=== PATIENT | female | born 1970 | race Caucasian/White ===

== ENCOUNTER 2017-10-02 11:35 | Emergency (ER) | payer OTHER ==
[~2017-10-02] VITALS: Ht 157.5 cm; Wt 152.9 kg
[~2017-10-02 11:35] MED LIST: ASPIR-LOW81 MG PO; ASPIRIN325 MG PO; ASPIRIN81 M2 PO; ATIVAN0.5 MG PO; CIPRO HC OTIC S10 ML BOTH EARS; DOXYCYCLINE HY100 MG PO; GABAPENTIN300 MG PO; GLUCOPHAGE1000 MG PO; HUMALOG100 UNIT/2 SC; LANTUS100 UNIT/1 SQ; LASIX40 MG PO; LEVAQUIN750 MG PO; LEVOTHYROXINE75 MCG; LEVOXYL25 MCG; LIPITOR10 MG; LIPITOR10 MG PO; LISINOPRIL5 MG; LOPRESSOR25 MG PO; LOVENOX150 MG/1 M SC; MORPHINE CON20 MG/M1 PO; NEURONTIN100 MG; NORCO 5/3251 TABLET PO; PRAVASTATIN SOD80 MG PO; PROMETHAZINE12.5 M1 PO; QUINAPRIL-HCTZ1 EAC2 PO; SYNTHROID88 MCG PO; WARFARIN SODIU7.5 MG PO
[2017-10-02 12:14] LABS: HEMATOCRIT 30.1 % (36.0-46.0); MCH 28.1 PG (29.0-34.0); MCHC 32.2 G/DL (30.0-36.0); MCV 87.2 FL (83-99); MEAN PLAT.VOLUME 10.8 uM^3 (9.5-12.4); PLATELET COUNT 342 K/uL (156-360); RBC DIS.WIDTH-CV 15.2 % (11.8-14.6); RBC DIS.WIDTH-SD 48.7 % (39-53); RED BLOOD COUNT 3.45 M/uL (3.80-5.20); WHITE BLOOD COUNT 9.4 K/uL (4.1-10.2)
[2017-10-02 12:22] LABS: CHLORIDE 106 mEq/L (99-109); POTASSIUM 4.9 mEq/L (3.7-5.4); SODIUM 141 mEq/L (136-147)
[2017-10-02 12:24] LABS: GLUCOSE 157 mg/dL (70-99)
[2017-10-02 12:25] LABS: ANION GAP 9 MEQ/L (2-14)
[2017-10-02 12:26] LABS: TOTAL BILIRUBIN 0.3 mg/dL (0.0-1.0)
[2017-10-02 12:27] LABS: ALKALINE PHOSPHATASE 139 IU/L (3-129)
[2017-10-02 12:28] LABS: GFR ESTIMATE (CALCULATED) 56 mL/min/
[2017-10-02 12:29] LABS: UREA NITROGEN (BUN) 26 mg/dL (9-23)
[2017-10-02 12:36] LABS: QUANTITATIVE HCG < 4.0 MIU/ML
[2017-10-02 12:37] LABS: ADD MIUA? YES; BILIRUBIN NEGATIVE; BLOOD LARGE; COLOR STRAW ((YELLOW)); GLUCOSE (STRIP) NEGATIVE; KETONES NEGATIVE; LEUKOCYTES NEGATIVE; NITRITE NEGATIVE; PROTEIN (STRIP) 30; SPECIFIC GRAVITY 1.013 (1.000-1.030); UROBILINOGEN 0.2 MG/DL (0.2-1.0)
[2017-10-02 12:48] LABS: BACTERIA RARE /HPF; EPITHELIAL CELLS RARE /HPF; MUCUS TRACE /LPF; UCUL ADDED? NO; WHITE BLOOD CELLS 0-5 /HPF (0-5)
[2017-10-02 14:12] LABS: PROTHROMBIN TIME 51.1 SEC (10.2-12.9)
[2017-10-02 14:27] LABS: INTER. NORMALIZED RATIO 4.5
[2017-10-02] MEDS ORDERED: BACTRIM,SEPT1 TABLET PO (15:14)
[2017-10-02] MEDS ORDERED: NORCO 5/3251 TABLET PO (15:14)
[2017-10-02 15:38] VITALS: BP 149/76
== END 2017-10-02 15:40 | disposition home or self-care (01) ==
LOC: EME 11:35
PROVIDERS: Emergency Medicine
DX: R10.30 Lower abdominal pain, unspecified (principal); N88.8 Other specified noninflammatory disorders of cervix uteri; M54.5 Low back pain; R11.0 Nausea; R19.7 Diarrhea, unspecified; I10 Essential (primary) hypertension; E03.9 Hypothyroidism, unspecified; E11.9 Type 2 diabetes mellitus without complications; Z79.4 Long term (current) use of insulin; Z86.718 Personal history of other venous thrombosis and embolism; Z95.1 Presence of aortocoronary bypass graft; Z86.73 Personal history of transient ischemic attack (TIA), and cerebral infarction without residual deficits; Z79.01 Long term (current) use of anticoagulants; Z87.891 Personal history of nicotine dependence
CPT/HCPCS: 74176; 80053; 81003; 84702; 85027; 85610; 99281; 99284

== ENCOUNTER 2017-10-10 10:14 | Observation (INO) | payer OTHER ==
[2017-10-10] VITALS (17 sets, daily range): BP systolic 107–159; BP diastolic 51–90
[~2017-10-10] VITALS: Ht 157.5 cm; Wt 153.6 kg
[~2017-10-10 10:14] MED LIST changes: +BACTRIM,SEPT1 TABLET PO; +LANTUS 3 M100 UNITS1 SC; -LIPITOR10 MG PO; +LIPITOR40 MG PO; +LOSARTAN-HCTZ1 EAC2 PO; -QUINAPRIL-HCTZ1 EAC2 PO
[2017-10-10 11:42] LABS: PTT 51.1 SEC (25-37)
[2017-10-10 11:45] LABS: PROTHROMBIN TIME 54.2 SEC (10.2-12.9)
[2017-10-10 11:47] LABS: HEMATOCRIT 20.4 % (36.0-46.0); MCH 29.1 PG (29.0-34.0); MCHC 31.9 G/DL (30.0-36.0); MCV 91.5 FL (83-99); MEAN PLAT.VOLUME 10.9 uM^3 (9.5-12.4); PLATELET COUNT 407 K/uL (156-360); RBC DIS.WIDTH-CV 15.9 % (11.8-14.6); RBC DIS.WIDTH-SD 51.5 % (39-53); RED BLOOD COUNT 2.23 M/uL (3.80-5.20); WHITE BLOOD COUNT 8.4 K/uL (4.1-10.2)
[2017-10-10 11:50] LABS: INTER. NORMALIZED RATIO 4.8
[2017-10-10 12:11] LABS: ANION GAP 8 MEQ/L (2-14); CHLORIDE 106 MEQ/L (99-109); GFR ESTIMATE (CALCULATED) 51 mL/min/; GLUCOSE 275 mg/dL (70-99); POTASSIUM 5.6 MEQ/L (3.7-5.4); SAMPLE HEMOLYSIS CHECK 1; SAMPLE ICTERIC CHECK 0; SAMPLE LIPEMIA CHECK 0; SODIUM 137 MEQ/L (136-147); UREA NITROGEN (BUN) 28 mg/dL (9-23)
[2017-10-10] MEDS ORDERED: WARFARIN SODIU7.5 MG PO ×2 (13:35→13:36)
[2017-10-10] MEDS ORDERED: NUCYNTA75 MG PO (13:38)
[2017-10-10] MEDS ORDERED: GABAPENTIN300 MG PO (13:39)
[2017-10-10 17:27] LABS: POINT-OF-CARE METER ID UU14162508
[2017-10-10 21:53] LABS: POINT-OF-CARE METER ID UU14208750
[2017-10-11] VITALS (14 sets, daily range): BP systolic 106–156; BP diastolic 53–75
[2017-10-11 06:44] LABS: POINT-OF-CARE METER ID UU14208750
[2017-10-11 07:50] LABS: BASOPHIL COUNT 0.1 K/uL (0-0.1); EOSINOPHIL (%) 6.4 % (0-5); EOSINOPHIL COUNT 0.5 K/uL (0-0.3); HEMATOCRIT 27.9 % (36.0-46.0); IMMATURE GRANULOCYTE (%) 1.1 % (0.0-0.7); IMMATURE GRANULOCYTE COUNT 0.1 K/uL; INSTRUMENT ABS NEUTROPHIL CT 4.3 K/uL; MCH 29.7 PG (29.0-34.0); MEAN PLAT.VOLUME 10.3 uM^3 (9.5-12.4); MONOCYTE (%) 5.2 % (3-12); MONOCYTE COUNT 0.4 K/uL (0-0.8); NEUTROPHIL (%) 58.7 % (45-76); NEUTROPHIL COUNT 4.3 K/uL (1.8-6.4); NRBC (%) 0.4 /100 WBC (0-0); PLATELET COUNT 366 K/uL (156-360); RBC DIS.WIDTH-CV 15.5 % (11.8-14.6); RBC DIS.WIDTH-SD 49.3 % (39-53); WHITE BLOOD COUNT 7.3 K/uL (4.1-10.2)
[2017-10-11 08:00] LABS: PTT 31.5 SEC (25-37)
[2017-10-11 08:04] LABS: INTER. NORMALIZED RATIO 1.3; PROTHROMBIN TIME 14.9 SEC (10.2-12.9)
[2017-10-11 08:09] LABS: ANION GAP 8 MEQ/L (2-14); CHLORIDE 107 MEQ/L (99-109); GFR ESTIMATE (CALCULATED) 56 mL/min/; GLUCOSE 75 mg/dL (70-99); POTASSIUM 4.4 MEQ/L (3.7-5.4); SAMPLE HEMOLYSIS CHECK 0; SAMPLE ICTERIC CHECK 0; SAMPLE LIPEMIA CHECK 0; SODIUM 141 MEQ/L (136-147); UREA NITROGEN (BUN) 23 mg/dL (9-23)
[2017-10-11 12:12] LABS: POINT-OF-CARE METER ID UU13113675
[2017-10-11 16:35] LABS: POINT-OF-CARE METER ID UU14162508
[2017-10-11 21:31] LABS: POINT-OF-CARE METER ID UU14314084
[2017-10-12 03:00] VITALS: BP 117/64
[2017-10-12 06:46] LABS: POINT-OF-CARE METER ID UU14208750
[2017-10-12 07:25] VITALS: BP 113/74
[2017-10-12 08:23] LABS: BASOPHIL COUNT 0.1 K/uL (0-0.1); EOSINOPHIL (%) 5.6 % (0-5); EOSINOPHIL COUNT 0.4 K/uL (0-0.3); HEMATOCRIT 30.4 % (36.0-46.0); IMMATURE GRANULOCYTE (%) 0.6 % (0.0-0.7); INSTRUMENT ABS NEUTROPHIL CT 4.4 K/uL; LYMPHOCYTE COUNT 1.6 K/uL (1.0-2.8); MCH 28.8 PG (29.0-34.0); MCHC 31.9 G/DL (30.0-36.0); MCV 90.2 FL (83-99); MEAN PLAT.VOLUME 10.4 uM^3 (9.5-12.4); MONOCYTE (%) 5.2 % (3-12); MONOCYTE COUNT 0.4 K/uL (0-0.8); NEUTROPHIL (%) 64.9 % (45-76); NEUTROPHIL COUNT 4.4 K/uL (1.8-6.4); PLATELET COUNT 372 K/uL (156-360); RBC DIS.WIDTH-CV 16.3 % (11.8-14.6); RBC DIS.WIDTH-SD 53.1 % (39-53); RED BLOOD COUNT 3.37 M/uL (3.80-5.20); WHITE BLOOD COUNT 6.8 K/uL (4.1-10.2)
[2017-10-12 08:32] LABS: INTER. NORMALIZED RATIO 1.3; PROTHROMBIN TIME 14.6 SEC (10.2-12.9)
[2017-10-12] MEDS ORDERED: NORCO 5/3251 TABLET PO (09:58)
[2017-10-12] MEDS ORDERED: LOVENOX150 MG/1 M SC (09:58)
[2017-10-12] MEDS ORDERED: COUMADIN5 MG PO (09:58)
[2017-10-12 11:15] VITALS: BP 129/67
[2017-10-12 11:48] LABS: POINT-OF-CARE METER ID UU14162508
== END 2017-10-12 13:16 | disposition home or self-care (01) ==
LOC: EME 10:14 → 2EAST 13:45 → EDOF 13:45 → ENRESERV 13:49 → 2EAST 15:59
PROVIDERS: Emergency Medicine; Obstetrics & Gynecology
DX: D50.0 Iron deficiency anemia secondary to blood loss (chronic) (principal); N92.0 Excessive and frequent menstruation with regular cycle; R79.1 Abnormal coagulation profile; T45.515A Adverse effect of anticoagulants, initial encounter; Z79.01 Long term (current) use of anticoagulants; Z86.718 Personal history of other venous thrombosis and embolism; E66.01 Morbid (severe) obesity due to excess calories; E11.9 Type 2 diabetes mellitus without complications; I25.10 Atherosclerotic heart disease of native coronary artery without angina pectoris; E78.00 Pure hypercholesterolemia, unspecified; I10 Essential (primary) hypertension; Z95.1 Presence of aortocoronary bypass graft; G89.29 Other chronic pain; M54.5 Low back pain; E03.9 Hypothyroidism, unspecified; N39.0 Urinary tract infection, site not specified; Z79.4 Long term (current) use of insulin; Z87.891 Personal history of nicotine dependence; Z83.3 Family history of diabetes mellitus
CPT/HCPCS: 80048; 80048 91; 82948; 83036; 85025; 85025 91; 85027; 85610; 85730; 86850; 86900; 86901; 86920; 88305; 99281; 99285; G0378; J0690; J1650; J1815; J2405; J3010; J3430; J7040; J7050; J7120; P9016; P9017; P9040; Q0177

== ENCOUNTER 2018-02-01 16:36 | Inpatient (IN) | payer OTHER ==
[~2018-02-01] VITALS: Ht 157.5 cm; Wt 158.8 kg
[2018-02-01] VITALS (8 sets, daily range): BP systolic 110–135; BP diastolic 57–94
[~2018-02-01 16:36] MED LIST changes: +COUMADIN5 MG PO; +NUCYNTA75 MG PO
[2018-02-01 17:17] LABS: HEMATOCRIT 18.8 % (36.0-46.0); MCH 28.2 PG (29.0-34.0); MCHC 31.9 G/DL (30.0-36.0); MCV 88.3 FL (83-99); PLATELET COUNT 373 K/uL (156-360); RBC DIS.WIDTH-CV 15.4 % (11.8-14.6); RBC DIS.WIDTH-SD 49.1 % (39-53); RED BLOOD COUNT 2.13 M/uL (3.80-5.20); WHITE BLOOD COUNT 8.9 K/uL (4.1-10.2)
[2018-02-01 17:20] LABS: INTER. NORMALIZED RATIO 4.5
[2018-02-01 17:33] LABS: CHLORIDE 101 mEq/L (99-109); POTASSIUM 5.8 mEq/L (3.7-5.4); SODIUM 134 mEq/L (136-147)
[2018-02-01 17:39] LABS: CREATININE 1.4 mg/dL (0.6-1.3); GFR ESTIMATE (CALCULATED) 43 mL/min/
[2018-02-01 17:40] LABS: UREA NITROGEN (BUN) 28 mg/dL (9-23)
[2018-02-01 17:42] LABS: GLUCOSE 419 mg/dL (70-99)
[2018-02-01] MEDS ORDERED: MEDROXYPROGESTE10 MG PO (18:30)
[2018-02-01] MEDS ORDERED: ATORVASTATIN CA40 MG PO (18:31)
[2018-02-01] MEDS ORDERED: LEVEMIR FL100 UNIT/1 SC (18:32)
[2018-02-01] MEDS ORDERED: NOVOLOG PE100 UNITS/ SC (18:34)
[2018-02-01] MEDS ORDERED: LOPRESSOR50 MG PO (18:34)
[2018-02-01] MEDS ORDERED: COUMADIN7.5 MG PO (18:36)
[2018-02-01] MEDS ORDERED: LO-DOSE ASPIRIN81 M2 PO (18:38)
[2018-02-01 21:45] LABS: APPEARANCE CLOUDY ((CLEAR)); BILIRUBIN NEGATIVE; BLOOD MODERATE; GLUCOSE (STRIP) >=500; KETONES NEGATIVE; LEUKOCYTES NEGATIVE; NITRITE NEGATIVE; PROTEIN (STRIP) 100; SPECIFIC GRAVITY 1.021 (1.000-1.030); UROBILINOGEN 0.2 MG/DL (0.2-1.0)
[2018-02-01 21:55] LABS: COLOR RED ((YELLOW))
[2018-02-01 21:56] LABS: BACTERIA NONE SEEN /HPF; EPITHELIAL CELLS NONE SEEN /HPF; MUCUS NONE SEEN /LPF; RED BLOOD CELLS TNTC /HPF (0-5); UCUL ADDED? YES; WHITE BLOOD CELLS RARE /HPF (0-5)
[2018-02-02] VITALS (19 sets, daily range): BP systolic 111–158; BP diastolic 60–92
[2018-02-02 00:46] LABS: TROP-I INTERPRETATION NEGATIVE; TROPONIN-I < 0.01 ng/mL (0.0-0.30)
[2018-02-02 03:03] LABS: HEMATOCRIT 19.8 % (36.0-46.0); HEMOGLOBIN 6.5 G/DL (11.9-15.5); MCV 85.7 FL (83-99)
[2018-02-02 06:09] LABS: HEMATOCRIT 21.1 % (36.0-46.0); MCH 27.9 PG (29.0-34.0); MCHC 32.2 G/DL (30.0-36.0); MCV 86.5 FL (83-99); PLATELET COUNT 352 K/uL (156-360); RBC DIS.WIDTH-SD 47.2 % (39-53); RED BLOOD COUNT 2.44 M/uL (3.80-5.20)
[2018-02-02 06:10] LABS: HEMOGLOBIN 6.8 G/DL (11.9-15.5)
[2018-02-02 06:12] LABS: TROP-I INTERPRETATION NEGATIVE; TROPONIN-I 0.01 ng/mL (0.0-0.30)
[2018-02-02 06:32] LABS: CHLORIDE 103 MEQ/L (99-109); CREATININE 1.2 MG/DL (0.6-1.3); GFR ESTIMATE (CALCULATED) 51 mL/min/; GLUCOSE 284 mg/dL (70-99); SODIUM 138 MEQ/L (136-147); UREA NITROGEN (BUN) 24 mg/dL (9-23)
[2018-02-02 06:44] LABS: POTASSIUM 4.6 MEQ/L (3.7-5.4)
[2018-02-02 10:30] LABS: INTER. NORMALIZED RATIO 1.5
[2018-02-02 11:23] LABS: IMM.RETIC FRACTION 38.5 % (3-19); RETIC HGB EQUIVALENT 26.9 (28-36); RETICULOCYTE COUNT 4.5 % (0.5-1.8)
[2018-02-02 11:32] LABS: ALBUMIN 3.2 G/DL (3.2-4.8); ALKALINE PHOSPHATASE 123 IU/L (3-129); ALT (GPT) 15 IU/L (3-49); AST (GOT) 10 IU/L (2-34); DIRECT BILIRUBIN 0.1 mg/dL (0.0-0.3); TOTAL BILIRUBIN 0.5 MG/DL (0.0-1.0); TOTAL PROTEIN 5.7 G/DL (6.4-8.3)
[2018-02-02 11:36] LABS: FERRITIN 11 NG/ML (10-291)
[2018-02-02 11:54] LABS: FOLIC ACID (FOLATE) 16.6 NG/ML (5.0-22.0)
[2018-02-02 15:58] LABS: HEMOGLOBIN 8.1 G/DL (11.9-15.5); MCV 87.4 FL (83-99)
[2018-02-02 21:47] LABS: HEMATOCRIT 26.3 % (36.0-46.0); HEMOGLOBIN 8.6 G/DL (11.9-15.5); MCV 88.3 FL (83-99)
[2018-02-03 06:18] LABS: BASOPHIL (%) 0.6 % (0-1); BASOPHIL COUNT 0.1 K/uL (0-0.1); EOSINOPHIL (%) 4.9 % (0-5); EOSINOPHIL COUNT 0.4 K/uL (0-0.3); HEMATOCRIT 25.3 % (36.0-46.0); HEMOGLOBIN 8.1 G/DL (11.9-15.5); IMMATURE GRANULOCYTE (%) 0.5 % (0.0-0.7); LYMPHOCYTE (%) 20.3 % (15-42); LYMPHOCYTE COUNT 1.7 K/uL (1.0-2.8); MCV 87.5 FL (83-99); MONOCYTE (%) 6.3 % (3-12); MONOCYTE COUNT 0.5 K/uL (0-0.8); NEUTROPHIL (%) 67.4 % (45-76); NEUTROPHIL COUNT 5.5 K/uL (1.8-6.4); PLATELET COUNT 321 K/uL (156-360); RBC DIS.WIDTH-SD 47.8 % (39-53); RED BLOOD COUNT 2.89 M/uL (3.80-5.20); WHITE BLOOD COUNT 8.1 K/uL (4.1-10.2)
[2018-02-03 06:46] LABS: ALBUMIN 3.1 G/DL (3.2-4.8); ALKALINE PHOSPHATASE 117 IU/L (3-129); ALT (GPT) 15 IU/L (3-49); AST (GOT) 11 IU/L (2-34); CHLORIDE 100 MEQ/L (99-109); CREATININE 1.1 MG/DL (0.6-1.3); GFR ESTIMATE (CALCULATED) 56 mL/min/; GLUCOSE 205 mg/dL (70-99); POTASSIUM 3.9 MEQ/L (3.7-5.4); SODIUM 139 MEQ/L (136-147); TOTAL BILIRUBIN 0.4 MG/DL (0.0-1.0); TOTAL PROTEIN 5.8 G/DL (6.4-8.3); UREA NITROGEN (BUN) 20 mg/dL (9-23)
[2018-02-03 10:06] VITALS: BP 132/67
[2018-02-03 11:52] LABS: INTER. NORMALIZED RATIO 1.2
[2018-02-03 11:54] LABS: HEMATOCRIT 24.5 % (36.0-46.0); HEMOGLOBIN 7.9 G/DL (11.9-15.5); MCV 89.4 FL (83-99)
[2018-02-03 16:58] VITALS: BP 135/73
[2018-02-04] VITALS (7 sets, daily range): BP systolic 117–135; BP diastolic 62–75
[2018-02-04 06:45] LABS: BASOPHIL (%) 0.5 % (0-1); EOSINOPHIL (%) 6.1 % (0-5); EOSINOPHIL COUNT 0.4 K/uL (0-0.3); HEMATOCRIT 23.8 % (36.0-46.0); HEMOGLOBIN 7.6 G/DL (11.9-15.5); IMMATURE GRANULOCYTE (%) 0.5 % (0.0-0.7); LYMPHOCYTE COUNT 1.4 K/uL (1.0-2.8); MCH 28.7 PG (29.0-34.0); MCHC 31.9 G/DL (30.0-36.0); MCV 89.8 FL (83-99); MONOCYTE (%) 6.6 % (3-12); MONOCYTE COUNT 0.4 K/uL (0-0.8); NEUTROPHIL (%) 63.3 % (45-76); NEUTROPHIL COUNT 3.7 K/uL (1.8-6.4); PLATELET COUNT 310 K/uL (156-360); RBC DIS.WIDTH-CV 15.2 % (11.8-14.6); RBC DIS.WIDTH-SD 48.8 % (39-53); RED BLOOD COUNT 2.65 M/uL (3.80-5.20); WHITE BLOOD COUNT 5.9 K/uL (4.1-10.2)
[2018-02-04 06:51] LABS: INTER. NORMALIZED RATIO 1.2
[2018-02-04 07:09] LABS: ALKALINE PHOSPHATASE 114 IU/L (3-129); ALT (GPT) 13 IU/L (3-49); AST (GOT) 10 IU/L (2-34); CHLORIDE 101 MEQ/L (99-109); CREATININE 1.1 MG/DL (0.6-1.3); GFR ESTIMATE (CALCULATED) 56 mL/min/; GLUCOSE 208 mg/dL (70-99); POTASSIUM 4.1 MEQ/L (3.7-5.4); SODIUM 138 MEQ/L (136-147); TOTAL BILIRUBIN 0.4 MG/DL (0.0-1.0); TOTAL PROTEIN 5.6 G/DL (6.4-8.3); UREA NITROGEN (BUN) 18 mg/dL (9-23)
[2018-02-04 17:53] LABS: HEMATOCRIT 29.4 % (36.0-46.0); HEMOGLOBIN 9.4 G/DL (11.9-15.5); MCV 90.5 FL (83-99)
[2018-02-05 06:02] LABS: HEMATOCRIT 27.4 % (36.0-46.0); HEMOGLOBIN 8.6 G/DL (11.9-15.5); MCV 90.4 FL (83-99)
[2018-02-05 06:05] LABS: INTER. NORMALIZED RATIO 1.2
[2018-02-05 08:19] VITALS: BP 163/71
[2018-02-05 15:05] LABS: HEMATOCRIT 27.7 % (36.0-46.0); HEMOGLOBIN 8.8 G/DL (11.9-15.5); MCV 91.4 FL (83-99)
[2018-02-05 15:50] VITALS: BP 139/70
[2018-02-05 23:35] VITALS: BP 139/63
[2018-02-06 07:22] LABS: HEMATOCRIT 27.5 % (36.0-46.0); HEMOGLOBIN 8.5 G/DL (11.9-15.5); MCV 90.5 FL (83-99)
[2018-02-06 07:28] LABS: INTER. NORMALIZED RATIO 1.3
[2018-02-06 07:29] VITALS: BP 125/59
[2018-02-06] MEDS ORDERED: MEDROXYPROGESTE10 MG PO (10:42)
== END 2018-02-06 12:48 | disposition home or self-care (01) | DRG 812 ==
LOC: EME 16:36 → 2EAST 18:53 → EDOF 18:53 → ENRESERV 18:55 → 2EAST 21:53
PROVIDERS: Hospitalist; Internal Medicine; Internal Medicine Hematology & Oncology
PROC: 30233N1 Transfusion of Nonautologous Red Blood Cells into Peripheral Vein, Percutaneous Approach (ICD-10-PCS; principal; 2018-02-01)
PROC: 30233L1 Transfusion of Nonautologous Fresh Plasma into Peripheral Vein, Percutaneous Approach (ICD-10-PCS; 2018-02-02)
DX: D62 Acute posthemorrhagic anemia (principal); N17.9 Acute kidney failure, unspecified; E87.5 Hyperkalemia; N92.0 Excessive and frequent menstruation with regular cycle; R79.1 Abnormal coagulation profile; T45.515A Adverse effect of anticoagulants, initial encounter; E11.65 Type 2 diabetes mellitus with hyperglycemia; I10 Essential (primary) hypertension; E78.00 Pure hypercholesterolemia, unspecified; I25.10 Atherosclerotic heart disease of native coronary artery without angina pectoris; K21.9 Gastro-esophageal reflux disease without esophagitis; E03.9 Hypothyroidism, unspecified; G89.29 Other chronic pain; E66.01 Morbid (severe) obesity due to excess calories; Z68.44 Body mass index [BMI] 60.0-69.9, adult; Z79.01 Long term (current) use of anticoagulants; Z79.4 Long term (current) use of insulin; Z86.718 Personal history of other venous thrombosis and embolism; Z86.73 Personal history of transient ischemic attack (TIA), and cerebral infarction without residual deficits; Z87.891 Personal history of nicotine dependence; Z95.1 Presence of aortocoronary bypass graft
CPT/HCPCS: 36415; 74018; 74177; 76856; 80048; 80053; 80076; 81003; 82607; 82728; 82746; 82948; 84484; 85014; 85018; 85025; 85027; 85046; 85610; 86147 90; 86850; 86900; 86901; 86920; 87086; 93005; 99281; 99284; J1756; J1815; J1940; J2270; J3430; J7030; J7050; P9016; P9017